=== PATIENT | female | born 1985 | race Caucasian/White ===

== ENCOUNTER 2017-04-08 14:49 | Inpatient (IN) | payer OTHER ==
[~2017-04-08] VITALS: Ht 157.5 cm; Wt 110.0 kg
[2017-04-08] MEDS ORDERED: MORPHINE SULFATE 4 MG/ML SYRINGE IVP ONE (16:45)
[2017-04-08] MEDS ORDERED: ACETAMINOPHEN 325 MG TABLET PO PRN (16:45)
[2017-04-08] MEDS ORDERED: ONDANSETRON HCL 4 MG/2 ML VIAL IVP PRN ×2 (16:45→21:30)
[2017-04-08] MEDS ORDERED: ACETAMINOPHEN 500 MG TABLET PO ONE (16:45)
[2017-04-08] MEDS ORDERED: VANCOMYCIN HCL 1 GM/D5% WATER 200 ML IV ONE (16:45)
[2017-04-08] MEDS ORDERED: SODIUM CHLORIDE 0.9% 1,000 ML IV ONE (16:45)
[2017-04-08] MEDS ORDERED: ONDANSETRON HCL 4 MG/2 ML VIAL IVP ONE (16:45)
[2017-04-08] MEDS ORDERED: 0.9% SODIUM CHLORIDE 10 ML SYRINGE IVP PRN (16:45)
[2017-04-08 16:54] LABS: BASOPHILS % (AUTO) 0.1 % (0.0-2.0); EOSINOPHILS % (AUTO) 0.1 % (1.0-6.0); HEMOGLOBIN 15.3 g/dL (12.0-16.0); LYMPHOCYTES # (AUTO) 1.3 K/uL (1.0-4.8); LYMPHOCYTES % (AUTO) 7.1 % (22.0-44.0); MEAN CORPUSCULAR HEMOGLOBIN 29.7 pg (26.0-34.0); MEAN CORPUSCULAR HGB CONC 34.1 G/dL (31.0-37.0); MEAN CORPUSCULAR VOLUME 87 fL (80-100); MONOCYTES # (AUTO) 0.8 K/uL (0.1-1.0); MONOCYTES % (AUTO) 4.3 % (2.0-9.0); NEUTROPHILS # (AUTO) 15.8 K/uL (1.8-7.7); PLATELET COUNT (AUTO) 308 K/uL (150-450); RED BLOOD CELL COUNT(AUTO) 5.17 MIL/uL (4.00-5.20); RED CELL DISTRIBUTION WIDTH 14.1 % (11.5-14.5); WHITE BLOOD COUNT (AUTO) 17.8 K/uL (4.5-11.0)
[2017-04-08 16:55] LABS: NEUTROPHILS % (AUTO) 88.4 % (40.0-70.0)
[2017-04-08 17:11] LABS: RBC MORPHOLOGY COMMENT NORMAL RBC MORPH
[2017-04-08 17:26] LABS: ANION GAP 11 mmol/L (8-16); CALCIUM, TOTAL 9.4 mg/dL (8.8-10.5); CARBON DIOXIDE 26 mmol/L (22-29); CHLORIDE 96 mmol/L (98-107); GLOMERULAR FILTR. RATE CALC > 60 mL/min (>60); POTASSIUM 3.7 mmol/L (3.5-5.1); SODIUM SERUM 133 mmol/L (136-145); UREA NITROGEN, BLOOD 6 mg/dL (7-18)
[2017-04-08 17:31] LABS: ALANINE AMINOTRANSFERASE 21 U/L (12-78); ALBUMIN 3.5 g/dL (3.4-5.0); ASPARTATE AMINOTRANSFERASE 8 U/L (15-37); TOTAL PROTEIN, SERUM 8.3 g/dL (6.4-8.2)
[2017-04-08 20:00] VITALS: BP 117/79
[2017-04-08] MEDS ORDERED: INFLUENZA VIRUS VACCINE QVS 2017-18 (3YR+)/PF 60 MCG/0.5 ML SYRINGE IM ONE (21:30)
[2017-04-08] MEDS ORDERED: DEXTROSE 50%-WATER 25 GM/50 ML SYRINGE IVP PRN (21:30)
[2017-04-08] MEDS ORDERED: SODIUM CHLORIDE 0.9% 1,000 ML IV SCH (21:30)
[2017-04-08] MEDS ORDERED: OxyCODONE HCL/ACETAMINOPHEN 5-325 MG TABLET PO PRN (21:30)
[2017-04-08] MEDS ORDERED: MAGNESIUM HYDROXIDE SUSPENSION 30 ML UDCUP PO PRN (21:30)
[2017-04-08] MEDS ORDERED: MORPHINE SULFATE 2 MG/ML SYRINGE IVP PRN ×2 (21:30→21:45)
[2017-04-08] MEDS: ACETAMINOPHEN 325 MG TABLET PO PRN (22:04)
[2017-04-08] MEDS: INSULIN ASPART 100 UNITS/ML SQ PRN (22:43)
[2017-04-08] MEDS ORDERED: IOVERSOL 320 MG/ML 100 ML VIAL ONE (22:53)
[2017-04-08 22:57] LABS: GLUCOSE,POINT OF CARE 528 MG/DL (70-110)
[2017-04-08] MEDS: VANCOMYCIN HCL 1 GM/D5% WATER 200 ML IV SCH (23:04)
[2017-04-09 00:07] VITALS: BP 124/73
[2017-04-09 00:12] LABS: GLUCOSE,POINT OF CARE 493 MG/DL (70-110)
[2017-04-09] MEDS: VANCOMYCIN HCL 1 GM/D5% WATER 200 ML IV SCH (00:30)
[2017-04-09] MEDS: PIPERACILLIN/TAZO 3.375 GM/D5W 50 ML IV SCH ×5 (01:26→23:05)
[2017-04-09 04:16] VITALS: BP 115/74
[2017-04-09] MEDS: ACETAMINOPHEN 325 MG TABLET PO PRN ×2 (04:23→18:25)
[2017-04-09] MEDS: VANCOMYCIN HCL 1.25 GM in DEXTROSE 5%-WATER 250 ML IV SCH ×3 (05:44→22:18)
[2017-04-09 06:11] LABS: HEMOGLOBIN A1C 10.8 % (4.5-6.2)
[2017-04-09 06:20] LABS: ANION GAP 10 mmol/L (8-16); CALCIUM, TOTAL 8.6 mg/dL (8.8-10.5); CARBON DIOXIDE 26 mmol/L (22-29); CHLORIDE 102 mmol/L (98-107); CREATININE 0.73 mg/dL (0.60-1.30); GLOMERULAR FILTR. RATE CALC > 60 mL/min (>60); POTASSIUM 3.8 mmol/L (3.5-5.1); SODIUM SERUM 138 mmol/L (136-145); UREA NITROGEN, BLOOD 6 mg/dL (7-18)
[2017-04-09 06:28] LABS: GLUCOSE,POINT OF CARE 263 MG/DL (70-110)
[2017-04-09] MEDS: INSULIN ASPART 100 UNITS/ML SQ PRN ×3 (06:52→21:09)
[2017-04-09 06:55] LABS: BASOPHILS % (AUTO) 0.7 % (0.0-2.0); EOSINOPHILS % (AUTO) 0.4 % (1.0-6.0); HEMATOCRIT 40.8 % (36-46); HEMOGLOBIN 13.8 g/dL (12.0-16.0); LYMPHOCYTES # (AUTO) 1.4 K/uL (1.0-4.8); LYMPHOCYTES % (AUTO) 8.6 % (22.0-44.0); MEAN CORPUSCULAR HEMOGLOBIN 29.8 pg (26.0-34.0); MEAN CORPUSCULAR HGB CONC 33.9 G/dL (31.0-37.0); MEAN CORPUSCULAR VOLUME 88 fL (80-100); MONOCYTES # (AUTO) 1.1 K/uL (0.1-1.0); MONOCYTES % (AUTO) 6.7 % (2.0-9.0); NEUTROPHILS # (AUTO) 13.8 K/uL (1.8-7.7); NEUTROPHILS % (AUTO) 83.6 % (40.0-70.0); PLATELET COUNT (AUTO) 287 K/uL (150-450); RED BLOOD CELL COUNT(AUTO) 4.65 MIL/uL (4.00-5.20); RED CELL DISTRIBUTION WIDTH 13.9 % (11.5-14.5); WHITE BLOOD COUNT (AUTO) 16.5 K/uL (4.5-11.0)
[2017-04-09 07:03] LABS: GLUCOSE,POINT OF CARE 277 MG/DL (70-110)
[2017-04-09 08:00] VITALS: BP 124/70
[2017-04-09] MEDS: DOCUSATE SODIUM 100 MG CAPSULE PO SCH ×2 (09:00→20:17)
[2017-04-09] MEDS: PANTOPRAZOLE SODIUM 40 MG DR TABLET PO SCH (09:00)
[2017-04-09] MEDS ORDERED: MEPERIDINE-PF 25 MG/ML SYRINGE IVP PRN (10:45)
[2017-04-09] MEDS ORDERED: FentaNYL CITRATE-PF 100 MCG/2 ML VIAL IVP PRN (10:45)
[2017-04-09] MEDS ORDERED: OXYGEN THERAPY IH SCH (10:45)
[2017-04-09] MEDS ORDERED: HYDROmorphone 2 MG/ML SYRINGE IVP PRN (10:45)
[2017-04-09] MEDS ORDERED: MIDAZOLAM HCL 2 MG/2 ML VIAL IVP ONE (12:00)
[2017-04-09] MEDS ORDERED: FentaNYL CITRATE-PF 100 MCG/2 ML VIAL IVP ONE (12:00)
[2017-04-09] MEDS ORDERED: ACETAMINOPHEN 500 MG TABLET PO PRN ×2 (12:15→21:00)
[2017-04-09] MEDS ORDERED: HYDROCODONE/ACETAMINOPHEN 5-325 MG TABLET PO PRN (12:15)
[2017-04-09] MEDS ORDERED: IBUPROFEN 600 MG TABLET PO PRN (12:15)
[2017-04-09] MEDS ORDERED: IBUPROFEN 800 MG TABLET PO PRN (13:15)
[2017-04-09 13:30] VITALS: BP 118/71
[2017-04-09 14:33] LABS: GLUCOSE,POINT OF CARE 242 MG/DL (70-110)
[2017-04-09 17:17] VITALS: BP 133/83
[2017-04-09 17:52] LABS: GLUCOSE,POINT OF CARE 253 MG/DL (70-110)
[2017-04-09 21:23] LABS: GLUCOSE,POINT OF CARE 254 MG/DL (70-110)
[2017-04-09 22:13] VITALS: BP 135/84
[2017-04-10] VITALS (8 sets, daily range): BP systolic 105–142; BP diastolic 57–86
[2017-04-10] MEDS ORDERED: SODIUM CHLORIDE 0.9% 500 ML IV ONE ×2 (00:41→17:56)
[2017-04-10] MEDS: PIPERACILLIN/TAZO 3.375 GM/D5W 50 ML IV SCH ×4 (04:43→22:27)
[2017-04-10] MEDS: VANCOMYCIN HCL 1.25 GM in DEXTROSE 5%-WATER 250 ML IV SCH ×3 (06:21→22:27)
[2017-04-10] MEDS: INSULIN ASPART 100 UNITS/ML SQ PRN ×4 (06:44→20:42)
[2017-04-10] MEDS ORDERED: METOCLOPRAMIDE HCL 5 MG/ML 2 ML VIAL IVP ONE (06:48)
[2017-04-10] MEDS ORDERED: KETOROLAC TROMETHAMINE 60 MG/2 ML VIAL IM ONE (06:48)
[2017-04-10] MEDS ORDERED: LIDOCAINE HCL/PF 2% 5 ML VIAL INJ ONE (06:48)
[2017-04-10] MEDS ORDERED: SUCCINYLCHOLINE CHLORIDE 20 MG/ML 10 ML VIAL IVP ONE (06:48)
[2017-04-10] MEDS ORDERED: PROPOFOL 1% 20 ML VIAL IVP ONE (06:48)
[2017-04-10] MEDS ORDERED: ONDANSETRON HCL 4 MG/2 ML VIAL IVP ONE (06:48)
[2017-04-10 07:08] LABS: ANION GAP 10 mmol/L (8-16); CALCIUM, TOTAL 8.2 mg/dL (8.8-10.5); CARBON DIOXIDE 26 mmol/L (22-29); CHLORIDE 101 mmol/L (98-107); CREATININE 0.64 mg/dL (0.60-1.30); GLOMERULAR FILTR. RATE CALC > 60 mL/min (>60); POTASSIUM 3.7 mmol/L (3.5-5.1); SODIUM SERUM 137 mmol/L (136-145); UREA NITROGEN, BLOOD 6 mg/dL (7-18)
[2017-04-10 07:11] LABS: BASOPHILS % (AUTO) 0.4 % (0.0-2.0); EOSINOPHILS % (AUTO) 1.6 % (1.0-6.0); HEMOGLOBIN 12.2 g/dL (12.0-16.0); LYMPHOCYTES # (AUTO) 1.8 K/uL (1.0-4.8); LYMPHOCYTES % (AUTO) 14.9 % (22.0-44.0); MEAN CORPUSCULAR HEMOGLOBIN 29.9 pg (26.0-34.0); MEAN CORPUSCULAR HGB CONC 33.8 G/dL (31.0-37.0); MEAN CORPUSCULAR VOLUME 88 fL (80-100); MONOCYTES # (AUTO) 0.7 K/uL (0.1-1.0); MONOCYTES % (AUTO) 5.4 % (2.0-9.0); NEUTROPHILS # (AUTO) 9.6 K/uL (1.8-7.7); NEUTROPHILS % (AUTO) 77.7 % (40.0-70.0); PLATELET COUNT (AUTO) 299 K/uL (150-450); RED BLOOD CELL COUNT(AUTO) 4.07 MIL/uL (4.00-5.20); RED CELL DISTRIBUTION WIDTH 14.2 % (11.5-14.5); WHITE BLOOD COUNT (AUTO) 12.4 K/uL (4.5-11.0)
[2017-04-10 07:16] LABS: GLUCOSE,POINT OF CARE 229 MG/DL (70-110)
[2017-04-10] MEDS: DOCUSATE SODIUM 100 MG CAPSULE PO SCH ×2 (07:52→20:42)
[2017-04-10] MEDS: PANTOPRAZOLE SODIUM 40 MG DR TABLET PO SCH (07:52)
[2017-04-10 11:38] LABS: GLUCOSE COMMENT 1 Received Meds; GLUCOSE,POINT OF CARE 244 MG/DL (70-110)
[2017-04-10 17:13] LABS: GLUCOSE COMMENT 1 Received Meds; GLUCOSE,POINT OF CARE 280 MG/DL (70-110)
[2017-04-10 22:35] LABS: GLUCOSE COMMENT 1 Received Meds; GLUCOSE,POINT OF CARE 299 MG/DL (70-110)
[2017-04-11 03:59] VITALS: BP 108/67
[2017-04-11] MEDS: PIPERACILLIN/TAZO 3.375 GM/D5W 50 ML IV SCH ×3 (05:23→17:51)
[2017-04-11] MEDS: VANCOMYCIN HCL 1.25 GM in DEXTROSE 5%-WATER 250 ML IV SCH ×3 (05:23→22:28)
[2017-04-11] MEDS: INSULIN ASPART 100 UNITS/ML SQ PRN ×4 (05:27→21:02)
[2017-04-11 06:40] LABS: INR 0.9 (0.9-1.1)
[2017-04-11 06:51] LABS: ANION GAP 10 mmol/L (8-16); CALCIUM, TOTAL 8.5 mg/dL (8.8-10.5); CARBON DIOXIDE 27 mmol/L (22-29); CHLORIDE 101 mmol/L (98-107); CREATININE 0.62 mg/dL (0.60-1.30); GLOMERULAR FILTR. RATE CALC > 60 mL/min (>60); POTASSIUM 3.7 mmol/L (3.5-5.1); SODIUM SERUM 138 mmol/L (136-145); UREA NITROGEN, BLOOD 12 mg/dL (7-18)
[2017-04-11 07:00] LABS: GLUCOSE COMMENT 1 Received Meds; GLUCOSE,POINT OF CARE 250 MG/DL (70-110)
[2017-04-11 07:07] LABS: BASOPHILS % (AUTO) 0.9 % (0.0-2.0); EOSINOPHILS % (AUTO) 3.2 % (1.0-6.0); HEMOGLOBIN 12.4 g/dL (12.0-16.0); LYMPHOCYTES # (AUTO) 1.5 K/uL (1.0-4.8); LYMPHOCYTES % (AUTO) 21.8 % (22.0-44.0); MEAN CORPUSCULAR HEMOGLOBIN 29.6 pg (26.0-34.0); MEAN CORPUSCULAR HGB CONC 33.6 G/dL (31.0-37.0); MEAN CORPUSCULAR VOLUME 88 fL (80-100); MONOCYTES # (AUTO) 0.5 K/uL (0.1-1.0); MONOCYTES % (AUTO) 6.6 % (2.0-9.0); NEUTROPHILS # (AUTO) 4.8 K/uL (1.8-7.7); NEUTROPHILS % (AUTO) 67.5 % (40.0-70.0); PLATELET COUNT (AUTO) 318 K/uL (150-450); WHITE BLOOD COUNT (AUTO) 7.1 K/uL (4.5-11.0)
[2017-04-11 07:35] VITALS: BP 110/58
[2017-04-11] MEDS: DOCUSATE SODIUM 100 MG CAPSULE PO SCH ×2 (09:03→21:00)
[2017-04-11] MEDS: ASCORBIC ACID 500 MG TABLET PO SCH (09:04)
[2017-04-11] MEDS: MULTIVITAMINS WITH MINERALS, THERAPEUTIC TABLET PO SCH (09:04)
[2017-04-11] MEDS: ZINC SULFATE 220 MG CAPSULE PO SCH (09:04)
[2017-04-11] MEDS: PANTOPRAZOLE SODIUM 40 MG DR TABLET PO SCH (09:04)
[2017-04-11 11:06] VITALS: BP 126/70
[2017-04-11] MEDS ORDERED: HEPARIN SODIUM 1000 UNITS/NS 500 ML ONE (13:31)
[2017-04-11 14:28] LABS: GLUCOSE COMMENT 1 Received Meds; GLUCOSE,POINT OF CARE 295 MG/DL (70-110)
[2017-04-11 16:43] VITALS: BP 138/91
[2017-04-11 18:38] LABS: GLUCOSE COMMENT 1 Received Meds; GLUCOSE,POINT OF CARE 309 MG/DL (70-110)
[2017-04-11 19:38] VITALS: BP 138/85
[2017-04-11 23:45] VITALS: BP 127/73
[2017-04-12] MEDS: PIPERACILLIN/TAZO 3.375 GM/D5W 50 ML IV SCH ×3 (00:22→11:21)
[2017-04-12 01:07] LABS: GLUCOSE COMMENT 1 Juice/Food/D50 Given; GLUCOSE,POINT OF CARE 278 MG/DL (70-110)
[2017-04-12 04:40] VITALS: BP 134/77
[2017-04-12] MEDS: INSULIN ASPART 100 UNITS/ML SQ PRN ×2 (05:23→11:20)
[2017-04-12] MEDS: VANCOMYCIN HCL 1.25 GM in DEXTROSE 5%-WATER 250 ML IV SCH (06:12)
[2017-04-12 06:32] LABS: GLUCOSE COMMENT 1 Juice/Food/D50 Given; GLUCOSE,POINT OF CARE 284 MG/DL (70-110)
[2017-04-12 07:33] LABS: BASOPHILS % (AUTO) 0.9 % (0.0-2.0); EOSINOPHILS % (AUTO) 2.4 % (1.0-6.0); HEMATOCRIT 37.3 % (36-46); HEMOGLOBIN 12.6 g/dL (12.0-16.0); LYMPHOCYTES # (AUTO) 1.9 K/uL (1.0-4.8); LYMPHOCYTES % (AUTO) 27.8 % (22.0-44.0); MEAN CORPUSCULAR HEMOGLOBIN 29.6 pg (26.0-34.0); MEAN CORPUSCULAR HGB CONC 33.8 G/dL (31.0-37.0); MEAN CORPUSCULAR VOLUME 87 fL (80-100); MONOCYTES # (AUTO) 0.4 K/uL (0.1-1.0); MONOCYTES % (AUTO) 6.1 % (2.0-9.0); NEUTROPHILS # (AUTO) 4.2 K/uL (1.8-7.7); NEUTROPHILS % (AUTO) 62.8 % (40.0-70.0); PLATELET COUNT (AUTO) 370 K/uL (150-450); RED BLOOD CELL COUNT(AUTO) 4.27 MIL/uL (4.00-5.20); RED CELL DISTRIBUTION WIDTH 13.9 % (11.5-14.5); WHITE BLOOD COUNT (AUTO) 6.7 K/uL (4.5-11.0)
[2017-04-12 07:49] LABS: ANION GAP 9 mmol/L (8-16); CALCIUM, TOTAL 8.6 mg/dL (8.8-10.5); CARBON DIOXIDE 28 mmol/L (22-29); CHLORIDE 101 mmol/L (98-107); CREATININE 0.61 mg/dL (0.60-1.30); GLOMERULAR FILTR. RATE CALC > 60 mL/min (>60); POTASSIUM 3.6 mmol/L (3.5-5.1); SODIUM SERUM 138 mmol/L (136-145); UREA NITROGEN, BLOOD 8 mg/dL (7-18)
[2017-04-12 07:57] VITALS: BP 149/85
[2017-04-12] MEDS: DOCUSATE SODIUM 100 MG CAPSULE PO SCH (08:41)
[2017-04-12] MEDS: PANTOPRAZOLE SODIUM 40 MG DR TABLET PO SCH (08:41)
[2017-04-12] MEDS: MULTIVITAMINS WITH MINERALS, THERAPEUTIC TABLET PO SCH (08:41)
[2017-04-12] MEDS: ASCORBIC ACID 500 MG TABLET PO SCH (08:41)
[2017-04-12] MEDS: ZINC SULFATE 220 MG CAPSULE PO SCH (08:41)
[2017-04-12 11:33] VITALS: BP 150/82
[2017-04-12 17:38] LABS: GLUCOSE,POINT OF CARE 293 MG/DL (70-110)
== END 2017-04-12 11:25 | DRG 720 ==
LOC: EMS 14:52 → EDBD 14:52 → 4E 18:18 → 6N 04-10 17:30
PROVIDERS: ADMIT Internal Medicine; ATTEND Internal Medicine
PROC: 02HV33Z Insertion of Infusion Device into Superior Vena Cava, Percutaneous Approach (ICD-10-PCS; 2017-04-09)
PROC: 0JB70ZZ Excision of Back Subcutaneous Tissue and Fascia, Open Approach (ICD-10-PCS; principal; 2017-04-09 13:00)
DX: A41.9 Sepsis, unspecified organism (principal); E44.0 Moderate protein-calorie malnutrition; E11.65 Type 2 diabetes mellitus with hyperglycemia; Z68.41 Body mass index [BMI] 40.0-44.9, adult; L02.212 Cutaneous abscess of back [any part, except buttock and flank]; E66.01 Morbid (severe) obesity due to excess calories; L03.312 Cellulitis of back [any part except buttock and flank]; Z83.3 Family history of diabetes mellitus
CPT/HCPCS: 36245; 36569; 72129; 76937; 82962; 83036; 83605; 87040; 87070; 87081; 87205; 88304; 90471; 96365; 96366; 96375; 99285; J0330; J1644; J1885; J2250; J2270; J2405; J2543; J2704; J2765; J3010; J3370; J3490; J7030; J7040; J7060

== ENCOUNTER 2020-03-10 23:40 | Inpatient (IN) | payer MEDICAID, OTHER ==
[~2020-03-10] VITALS: Ht 157.5 cm; Wt 113.6 kg
[2020-03-11] MEDS ORDERED: METF-960 PO (00:10)
[2020-03-11] MEDS ORDERED: INSLAN SQ (00:10)
[2020-03-11] MEDS ORDERED: IOVERSOL 350 MG/ML 100 ML VIAL ONE (00:58)
[2020-03-11] MEDS ORDERED: SODIUM CHLORIDE 0.9% 100 ML ONE (00:58)
[2020-03-11 01:28] LABS: BASOPHILS % (AUTO) 1.3 % (0.0-2.0); EOSINOPHILS % (AUTO) 5.6 % (1.0-6.0); HEMATOCRIT 41.4 % (36-46); HEMOGLOBIN 13.5 g/dL (12.0-16.0); LYMPHOCYTES % (AUTO) 26.9 % (22.0-44.0); MEAN CORPUSCULAR HEMOGLOBIN 28.4 pg (26.0-34.0); MEAN CORPUSCULAR HGB CONC 32.6 G/dL (31.0-37.0); MEAN CORPUSCULAR VOLUME 87 fL (80-100); MONOCYTES # (AUTO) 0.5 K/uL (0.1-1.0); MONOCYTES % (AUTO) 7.2 % (2.0-9.0); NEUTROPHILS # (AUTO) 4.5 K/uL (1.8-7.7); PLATELET COUNT (AUTO) 290 K/uL (150-450); RED BLOOD CELL COUNT(AUTO) 4.76 MIL/uL (4.00-5.20); RED CELL DISTRIBUTION WIDTH 14.9 % (11.5-14.5)
[2020-03-11 01:41] LABS: CREATININE 1.08 mg/dL (0.60-1.30); POTASSIUM 4.3 mmol/L (3.5-5.1)
[2020-03-11] MEDS ORDERED: SODIUM CHLORIDE 0.9% 1,000 ML IV ONE (02:15)
[2020-03-11] MEDS ORDERED: INSULIN GLARGINE,HUM.REC.ANLOG 100 UNITS/ML SQ ONE (02:15)
[2020-03-11] MEDS ORDERED: VANCOMYCIN HCL 1 GM/D5% WATER 200 ML IV ONE (04:00)
[2020-03-11] MEDS ORDERED: PIPERACILLIN/TAZO 3.375 GM/D5W 50 ML IV ONE (04:00)
[2020-03-11 04:16] LABS: GLUCOSE,POINT OF CARE 373 MG/DL (70-110)
[2020-03-11] MEDS ORDERED: 0.9% SODIUM CHLORIDE 10 ML SYRINGE IVP PRN (04:30)
[2020-03-11] MEDS ORDERED: ACETAMINOPHEN 325 MG TABLET PO PRN (04:30)
[2020-03-11] MEDS ORDERED: ONDANSETRON HCL 4 MG/2 ML VIAL IVP PRN (04:30)
[2020-03-11] MEDS ORDERED: DEXTROSE 50%-WATER 25 GM/50 ML SYRINGE IVP PRN (05:15)
[2020-03-11] MEDS: SODIUM CHLORIDE 0.9% 3,400 ML IV SCH ×2 (05:39→21:50)
[2020-03-11 08:33] LABS: GLUCOSE,POINT OF CARE 273 MG/DL (70-110)
[2020-03-11] MEDS ORDERED: FAMOTIDINE 10 MG/ML 2 ML VIAL IVP SCH (09:00)
[2020-03-11] MEDS: INSULIN LISPRO 100 UNITS/ML SQ PRN ×3 (09:29→22:29)
[2020-03-11] MEDS ORDERED: HYDROmorphone 2 MG/ML SYRINGE IVP PRN ×2 (10:00→13:30)
[2020-03-11] MEDS ORDERED: MEPERIDINE-PF 25 MG/ML VIAL IVP PRN (10:00)
[2020-03-11] MEDS ORDERED: FentaNYL CITRATE-PF 100 MCG/2 ML VIAL IVP PRN (10:00)
[2020-03-11 10:41] LABS: COVID AG,FIA SOURCE NASOPHARYNGEAL
[2020-03-11] MEDS ORDERED: GLYCOPYRROLATE 0.2 MG/ML VIAL IM ONE (12:00)
[2020-03-11] MEDS ORDERED: ROCURONIUM BROMIDE 10 MG/ML 5 ML VIAL IVP ONE (12:00)
[2020-03-11] MEDS ORDERED: MIDAZOLAM HCL 2 MG/2 ML VIAL IVP ONE (12:00)
[2020-03-11] MEDS ORDERED: LIDOCAINE/PF 2% 5 ML VIAL INJ ONE (12:00)
[2020-03-11] MEDS ORDERED: FentaNYL CITRATE-PF 100 MCG/2 ML VIAL IV ONE (12:00)
[2020-03-11] MEDS ORDERED: 0.9% SODIUM CHLORIDE 10 ML VIAL IVP ONE (12:00)
[2020-03-11] MEDS ORDERED: NEOSTIGMINE METHYLSULFATE 1 MG/ML 10 ML VIAL IVP ONE (12:00)
[2020-03-11] MEDS ORDERED: ONDANSETRON HCL 4 MG/2 ML VIAL IVP ONE (12:00)
[2020-03-11] MEDS ORDERED: MetroNIDAZOLE 500 MG/NACL 100 ML IV ONE (13:06)
[2020-03-11] MEDS ORDERED: BUPIVACAINE/EPI/PF 0.5% 30 ML VIAL ONE (13:12)
[2020-03-11] MEDS ORDERED: POVIDONE-IODINE 10% 15 ML SOLUTION UD ONE (13:16)
[2020-03-11] MEDS ORDERED: RINGERS SOLUTION,LACTATED 1,000 ML IV ONE (13:28)
[2020-03-11] MEDS ORDERED: HYDROCODONE/ACETAMINOPHEN 5-325 MG TABLET PO PRN (13:30)
[2020-03-11] MEDS ORDERED: MORPHINE SULFATE 2 MG/ML SYRINGE IVP PRN (13:30)
[2020-03-11] MEDS ORDERED: ALBUTEROL SULFATE 2.5 MG/0.5 ML NEB SOLUTION NEB ONE (13:32)
[2020-03-11] MEDS ORDERED: SUGAMMADEX SODIUM 200 MG/2 ML VIAL IVP ONE (13:32)
[2020-03-11] MEDS ORDERED: 0.9% SODIUM CHLORIDE 5 ML NEB SOLUTION NEB ONE (13:32)
[2020-03-11 13:57] LABS: GLUCOSE,POINT OF CARE 250 MG/DL (70-110)
[2020-03-11 15:26] VITALS: BP 128/84
[2020-03-11] MEDS: FAMOTIDINE 20 MG TABLET PO SCH ×2 (17:16→21:48)
[2020-03-11] MEDS: PIPERACILLIN SODIUM/TAZOBACTAM 4.5 GM in DEXTROSE 5%-WATER 100 ML IV SCH ×2 (17:16→21:49)
[2020-03-11] MEDS ORDERED: SODIUM CHLORIDE 0.9% 500 ML IV ONE (17:35)
[2020-03-11 19:41] LABS: GLUCOMETER DEV NAME(LOC) 4E.2; GLUCOSE,POINT OF CARE 221 MG/DL (70-110)
[2020-03-11] MEDS ORDERED: OXYGEN THERAPY IH SCH (20:00)
[2020-03-11 21:02] VITALS: BP 117/72
[2020-03-11] MEDS: MINERAL OIL 30 ML UDCUP PO SCH (21:48)
[2020-03-11 22:35] LABS: GLUCOMETER DEV NAME(LOC) 4E.2; GLUCOSE,POINT OF CARE 286 MG/DL (70-110)
[2020-03-12 01:38] VITALS: BP 108/71
[2020-03-12 05:03] VITALS: BP 123/71
[2020-03-12] MEDS: PIPERACILLIN SODIUM/TAZOBACTAM 4.5 GM in DEXTROSE 5%-WATER 100 ML IV SCH (05:36)
[2020-03-12 06:02] LABS: GLUCOMETER DEV NAME(LOC) 4E.2; GLUCOSE,POINT OF CARE 239 MG/DL (70-110)
[2020-03-12] MEDS: INSULIN LISPRO 100 UNITS/ML SQ PRN ×2 (06:07→11:41)
[2020-03-12 07:20] LABS: BASOPHILS % (AUTO) 1.2 % (0.0-2.0); HEMATOCRIT 37.6 % (36-46); HEMOGLOBIN 12.5 g/dL (12.0-16.0); LYMPHOCYTES # (AUTO) 1.6 K/uL (1.0-4.8); LYMPHOCYTES % (AUTO) 21.1 % (22.0-44.0); MEAN CORPUSCULAR HEMOGLOBIN 28.9 pg (26.0-34.0); MEAN CORPUSCULAR HGB CONC 33.2 G/dL (31.0-37.0); MEAN CORPUSCULAR VOLUME 87 fL (80-100); MONOCYTES # (AUTO) 0.6 K/uL (0.1-1.0); MONOCYTES % (AUTO) 7.6 % (2.0-9.0); NEUTROPHILS # (AUTO) 5.2 K/uL (1.8-7.7); NEUTROPHILS % (AUTO) 66.1 % (40.0-70.0); PLATELET COUNT (AUTO) 255 K/uL (150-450); RED BLOOD CELL COUNT(AUTO) 4.33 MIL/uL (4.00-5.20)
[2020-03-12 07:27] LABS: ANION GAP 8 mmol/L (8-16); CALCIUM, TOTAL 8.1 mg/dL (8.8-10.5); CARBON DIOXIDE 26 mmol/L (22-29); CHLORIDE 107 mmol/L (98-107); CREATININE 0.85 mg/dL (0.60-1.30); GLOMERULAR FILTR. RATE CALC > 60 mL/min (>60); GLUCOSE,RANDOM 292 mg/dL (70-110); POTASSIUM 3.5 mmol/L (3.5-5.1); SODIUM SERUM 141 mmol/L (136-145); UREA NITROGEN, BLOOD 7 mg/dL (7-18)
[2020-03-12 08:05] VITALS: BP 122/77
[2020-03-12] MEDS: FAMOTIDINE 20 MG TABLET PO SCH (08:17)
[2020-03-12] MEDS: MINERAL OIL 30 ML UDCUP PO SCH (08:17)
[2020-03-12] MEDS ORDERED: METF-960 PO (12:35)
[2020-03-12] MEDS ORDERED: AMOX1TAB16 PO (12:36)
[2020-03-12] MEDS ORDERED: ZINC220C14 PO (12:37)
[2020-03-12] MEDS ORDERED: BENZ-51 PO (12:37)
[2020-03-12 13:50] LABS: GLUCOMETER DEV NAME(LOC) 6S.1; GLUCOSE,POINT OF CARE 261 MG/DL (70-110)
== END 2020-03-12 15:30 | disposition home or self-care (01) | DRG 951 ==
LOC: EMS 23:40 → 6N 03-11 05:16
PROVIDERS: ADMIT Internal Medicine; ATTEND Internal Medicine
PROC: 0J9B0ZZ Drainage of Perineum Subcutaneous Tissue and Fascia, Open Approach (ICD-10-PCS; principal; 2020-03-11 09:29)
DX: K61.39 Other ischiorectal abscess (principal); U07.1 COVID-19; E11.10 Type 2 diabetes mellitus with ketoacidosis without coma; E66.01 Morbid (severe) obesity due to excess calories; F17.200 Nicotine dependence, unspecified, uncomplicated; Z79.4 Long term (current) use of insulin; Z83.3 Family history of diabetes mellitus; Z91.14 Patient's other noncompliance with medication regimen; Z91.19 Patient's noncompliance with other medical treatment and regimen; Z68.42 Body mass index [BMI] 45.0-49.9, adult; Z79.899 Other long term (current) drug therapy; Z71.6 Tobacco abuse counseling
CPT/HCPCS: 74177; 83605; 87040; 87070; 87205; 87426; 88304; J0690; J1815; J2250; J2405; J2543; J3010; J3370; J3490; J7030; J7040; J7050; J7060; J7120; 36415-L1; 36415-TC; 71045-TC; J7613